=== PATIENT | male | born 1955 | race African-American/Black ===

== ENCOUNTER 2022-03-02 09:35 | Inpatient (IN) | payer OTHER ==
[~2022-03-02] VITALS: Ht 188 cm; Wt 114.4 kg
[~2022-03-02 09:35] MED LIST: ALBU90OI INH; AZIT250 PO; AZIT500 PO; CLAR500 PO; CLIN300; CODGUAEL PO; DILT240; OXYACE5T PO; [UNRECOGNIZED DRUG - REMARK]
[2022-03-02] MEDS ORDERED: Norco 10-325 T1 EACH PO (10:37)
[2022-03-02] MEDS ORDERED: HYDCHL25 PO (10:37)
[2022-03-02] MEDS ORDERED: VALS80 PO (10:38)
[2022-03-02] MEDS ORDERED: ALBU90OI INH (10:47)
[2022-03-02 10:52] LABS: Source, Urine Clean Catch
[2022-03-02 11:00] LABS: BASOPHILS ABSOLUTE AUTO 0.04 K/mm3 (0.00-0.23); BASOPHILS PERCENT AUTO 0 % (0-2); EOSINOPHILS ABSOLUTE AUTO 0.02 K/mm3 (0.00-0.68); EOSINOPHILS PERCENT AUTO 0 % (0-6); Hemoglobin 14.3 g/dL (13.5-17.5); IMMATURE GRAN ABSOLUTE AUTO 0.13 K/mm3 (0.00-0.10); IMMATURE GRAN PERCENT AUTO 1 % (0-1); LYMPHOCYTES ABSOLUTE AUTO 1.06 K/mm3 (0.84-5.20); LYMPHOCYTES PERCENT AUTO 7 % (21-46); MONOCYTES ABSOLUTE AUTO 1.27 K/mm3 (0.16-1.47); MONOCYTES PERCENT AUTO 9 % (4-13); Mean Corpuscular HGB 35.2 pg (26.0-34.0); Mean Corpuscular HGB Conc 36.7 g/dL (31.5-36.5); Mean Corpuscular Volume 96 fL (80-100); Mean Platelet Volume 9.4 fL (9.1-12.4); NEUTROPHILS PERCENT AUTO 83 % (41-73); NRBC ABSOLUTE 0.02 K/mm3 (0.00-0.02); NRBC Auto 0.1 /100 WBC (0.0-0.2); Platelet Count 233 K/mm3 (150-400); RDW Coefficient Variation 16.2 % (11.7-14.2); RDW Standard Deviation 56.8 fL (35.1-46.3); Red Blood Cell Count 4.06 M/mm3 (4.30-5.90); White Blood Cell Count 15.02 K/mm3 (4.00-11.30)
[2022-03-02 11:08] LABS: Appearance, Urine Clear (Clear); Blood, Urine 1+ (Neg); Color, Urine Amber (P-Yellow); Glucose Qualitative, Urine 1+ (Neg); Ketones, Urine 2+ (Neg); Leukocyte Esterase, Urine 1+ (Neg); Nitrite, Urine Neg (Neg); Protein, Urine 2+ (Neg); Specific Gravity, Urine 1.015 (1.003-1.022); Urobilinogen, Urine 2+ (Normal)
[2022-03-02 11:20] LABS: Albumin, Blood 3.5 g/dL (3.4-5.0); Albumin/Globulin Ratio 0.7 (0.8-1.8); Bilirubin, Total 3.7 mg/dL (0.1-1.0); Bun/Creatinine Ratio 18.9 (12.0-20.0); Creatinine, Blood 1.32 mg/dL (0.60-1.20); Potassium, Blood 3.8 mmol/L (3.5-5.5); Total Protein, Blood 8.5 g/dL (6.4-8.2)
[2022-03-02 12:01] LABS: Bilirubin, Urine 1+ (Neg)
[2022-03-02 12:05] LABS: Bacteria Rare /hpf; Red Blood Cells, Urine 0-2 /hpf (0-2); Squamous Epithelial Cells Rare /hpf (Few); White Blood Cells, Urine 0-2 /hpf (0-5)
--- NOTE | 2022-03-02 18:40 | NUR ---
PT ARRIVED TO ROOM AT 1620 BY PAUL FROM ED. ABLE TO TRANSFER SELF TO BED. AMBULATED TO BATHROOM WITH 1 PERSON ASSIST BUT APPEARS TO BE ABLE TO BE INDEPENDENT. SOB WITH ANY ACTIVITY. REPORTS PAIN TO R FLANK WITH ANY MOVEMENT. STATES FOOD DOESN'T TASTE AND HAS TROUBLE EATING DUE TO FLAVOR. ANSWERING QUESTIONS APPROPRIATELY.
--- NOTE | 2022-03-03 04:46 | NUR ---
SUMMARY: PATIENT DID WELL OVER NIGHT. MILD COMPLAINTS OF PAIN WITH MOVEMENT. PATIENT STATED HE DID NOT WANT HIS MIDNIGHT SCHEDULED NORCO. PATIETN ON IV FLUIDS FOR AGNES. NO ACUTE RESPIRATORY COMPAINTS OVERNIGHT. PATIENT AMBULATED TO RESTROOM INDEPENDENTLY. MILD SHORTNESS OF BREATH WHILE AMBULATING.
[2022-03-03 04:57] LABS: Hematocrit 34.2 % (37.0-53.0); Hemoglobin 12.3 g/dL (13.5-17.5); Mean Corpuscular HGB 35.2 pg (26.0-34.0); Mean Corpuscular Volume 98 fL (80-100); Mean Platelet Volume 9.3 fL (9.1-12.4); Platelet Count 187 K/mm3 (150-400); RDW Standard Deviation 57.4 fL (35.1-46.3); Red Blood Cell Count 3.49 M/mm3 (4.30-5.90); White Blood Cell Count 11.38 K/mm3 (4.00-11.30)
[2022-03-03 05:44] LABS: Bun/Creatinine Ratio 19.2 (12.0-20.0); Calcium, Blood 8.6 mg/dL (8.5-10.1); Creatinine, Blood 1.2 mg/dL (0.60-1.20); Potassium, Blood 3.8 mmol/L (3.5-5.5)
--- NOTE | 2022-03-03 19:15 | NUR ---
SHIFT SUMMARY PT INDEPENDENT IN ROOM. REPORTS SOB WITH ANY ACTIVITY WITH A DELAYED RECOVERY OF SOB OF ABOUT 10 MINUTES. COUGHING IS PAINFUL AND TRYING TO AVOID IT. INCENTIVE SPIROMETER GIVEN AND INSTRUCTION GIVEN. PT QUITE TALL AND HAS DIFFICULTY GETTING UP FROM BED IF NOT ELEVATED FOR HIS HEIGHT. REQUESTING TO KEEP BED ELEVATED FOR EASE OF EXITING FOR RESTROOM. APPETITE BETTER THAN YESTERDAY.
--- NOTE | 2022-03-04 04:57 | NUR ---
SHIFT SUMMARY: PT IS ALERT AND ORIENTED. PT IS CALM AND COOPERATIVE WITH CARE. PT CALLS APPROPRIATELY. PT IS INDEPENDENT IN THE ROOM. PT REPORTS R. FLANK PAIN, ESPECIALLY DURING AMBULATION, MEDICATING PER EMAR. PT REPORTS SOB UPON EXERTION, SATS > 90% ON ROOM AIR. PT DENIES NAUSEA AND VOMITING. NO ACUTE CHANGES OR COMPLICATIONS. WILL CONTINUE TO MONITOR.
[2022-03-04 05:55] LABS: BASOPHILS ABSOLUTE AUTO 0.05 K/mm3 (0.00-0.23); BASOPHILS PERCENT AUTO 1 % (0-2); EOSINOPHILS ABSOLUTE AUTO 0.13 K/mm3 (0.00-0.68); EOSINOPHILS PERCENT AUTO 1 % (0-6); Hematocrit 32.1 % (37.0-53.0); Hemoglobin 11.6 g/dL (13.5-17.5); IMMATURE GRAN ABSOLUTE AUTO 0.06 K/mm3 (0.00-0.10); IMMATURE GRAN PERCENT AUTO 1 % (0-1); LYMPHOCYTES ABSOLUTE AUTO 0.95 K/mm3 (0.84-5.20); LYMPHOCYTES PERCENT AUTO 10 % (21-46); MONOCYTES ABSOLUTE AUTO 0.95 K/mm3 (0.16-1.47); MONOCYTES PERCENT AUTO 10 % (4-13); Mean Corpuscular HGB 35.4 pg (26.0-34.0); Mean Corpuscular HGB Conc 36.1 g/dL (31.5-36.5); Mean Corpuscular Volume 98 fL (80-100); Mean Platelet Volume 9.2 fL (9.1-12.4); NEUTROPHILS PERCENT AUTO 78 % (41-73); Platelet Count 227 K/mm3 (150-400); RDW Coefficient Variation 15.9 % (11.7-14.2); RDW Standard Deviation 57.4 fL (35.1-46.3); Red Blood Cell Count 3.28 M/mm3 (4.30-5.90); White Blood Cell Count 9.94 K/mm3 (4.00-11.30)
[2022-03-04 06:14] LABS: Albumin, Blood 2.5 g/dL (3.4-5.0); Anion Gap 9 mmol/L (6-16); Blood Urea Nitrogen 18 mg/dL (8-24); Bun/Creatinine Ratio 17.8 (12.0-20.0); CO2, Blood 24 mmol/L (21-32); Calcium, Blood 8.4 mg/dL (8.5-10.1); Chloride, Blood 101 mmol/L (98-108); Creatinine, Blood 1.01 mg/dL (0.60-1.20); Glomerular Filtration Rate 82 (60-); Glucose, Blood 120 mg/dL (70-99); Phosphorus, Blood 2.4 mg/dL (2.5-4.9); Potassium, Blood 3.9 mmol/L (3.5-5.5); Sodium, Blood 134 mmol/L (136-145)
--- NOTE | 2022-03-04 18:17 | NUR ---
PATIENT IS ALERT AND ORIENTED AND COOPERATIVE WITH CARE. HAD ONE EPISODE OF DIARRHEA TODAY. PATIENT SHOWERED TODAY. C/O CP WITH COUGHING. ORDERED SOME COUGH MEDICINE. PATIENT REFUSED FLEXERIL AT THIS TIME. HIS FRIEND WAS AT THE BEDSIDE FOR A LITTLE WHILE THIS MORNING. WILL CONTINUE TO MONITOR
--- NOTE | 2022-03-05 05:07 | NUR ---
SHIFT SUMMARY: PT CONTINUE TO HAVE R. FLANK PAIN WHICH IS INCREASED DURING AND AFTER AMBULATION, MEDICATING PER EMAR. PT CONTINUES TO BE CALM AND COOPERATIVE WITH CARE. PT SLEPT INTERMITTENTLY THROUGHOUT THE NIGHT. NO ACUTE CHANGES, CONCERNS, OR COMPLICATIONS. WILL CONTINUE TO MONITOR.
[2022-03-05 05:25] LABS: BASOPHILS ABSOLUTE AUTO 0.05 K/mm3 (0.00-0.23); BASOPHILS PERCENT AUTO 1 % (0-2); EOSINOPHILS ABSOLUTE AUTO 0.22 K/mm3 (0.00-0.68); EOSINOPHILS PERCENT AUTO 2 % (0-6); Hematocrit 31.8 % (37.0-53.0); Hemoglobin 11.4 g/dL (13.5-17.5); IMMATURE GRAN ABSOLUTE AUTO 0.04 K/mm3 (0.00-0.10); IMMATURE GRAN PERCENT AUTO 0 % (0-1); LYMPHOCYTES ABSOLUTE AUTO 1.32 K/mm3 (0.84-5.20); LYMPHOCYTES PERCENT AUTO 12 % (21-46); MONOCYTES ABSOLUTE AUTO 1.05 K/mm3 (0.16-1.47); MONOCYTES PERCENT AUTO 10 % (4-13); Mean Corpuscular HGB 35.1 pg (26.0-34.0); Mean Corpuscular HGB Conc 35.8 g/dL (31.5-36.5); Mean Corpuscular Volume 98 fL (80-100); NEUTROPHILS ABSOLUTE AUTO 8.12 K/mm3 (1.96-9.15); NEUTROPHILS PERCENT AUTO 75 % (41-73); Platelet Count 245 K/mm3 (150-400); RDW Coefficient Variation 15.6 % (11.7-14.2); RDW Standard Deviation 55.6 fL (35.1-46.3); Red Blood Cell Count 3.25 M/mm3 (4.30-5.90)
[2022-03-05 05:55] LABS: Albumin, Blood 2.6 g/dL (3.4-5.0); Anion Gap 9 mmol/L (6-16); Blood Urea Nitrogen 17 mg/dL (8-24); CO2, Blood 26 mmol/L (21-32); Calcium, Blood 8.9 mg/dL (8.5-10.1); Chloride, Blood 99 mmol/L (98-108); Glomerular Filtration Rate 83 (60-); Glucose, Blood 129 mg/dL (70-99); Phosphorus, Blood 3.2 mg/dL (2.5-4.9); Potassium, Blood 3.5 mmol/L (3.5-5.5); Sodium, Blood 134 mmol/L (136-145)
--- NOTE | 2022-03-05 08:11 | NUR ---
COUGH UP BLOOD PT WITH FREQ STRONG COUGH THAT PRODUCED LYNNE BLOOD. ORDERED A STAT PE STUDY TO R/O PE. CAST IRON DRAIN PIPE LAYER HERE WITH W/C TO PRESALES CONSULTANT PT TO GO DOWN FOR STUDY.
--- NOTE | 2022-03-05 18:38 | NUR ---
SHIFT SUMMARY PT A&O X 4. VSS. PT CONTINUES TO C/O FLANK PAIN AND PAIN WHEN COUGHING. SPUTUM CX OBTAINED AND SENT TO LAB PER MD ORDER. MEDICATED FOR PAIN AND COUGH PER EMAR. PT WENT FOR A PE STUDY TODAY THAT SHOWED NO PE IS PRESENT. PT IS CALM, PLEASANT & COOPERATIVE WITH ALL CARE.
--- NOTE | 2022-03-06 06:28 | NUR ---
Rn summary: Patient is a delightful man here for RLL PNA. Patient has significant pain to rt side with cough. Medicated q6 hours with [place] 1 tab with good relief. Pt is also receiving cough med with codiene q 4 hours. He is able to move well in bed. He continues to have generalized weakness but able to sit at bedside and get himself back into bed. Pt endorses poor appetite. This am pt had 2 chery sized blood clots he coughed up. Pt is on room air and has course crackles Rt lung base. Call light in reach. Has rested well with pain meds.
[2022-03-06 08:33] LABS: International Normalized Ratio 1.06; Prothrombin Time Results 11.1 Sec (9.7-11.5)
--- NOTE | 2022-03-06 16:16 | NUR ---
PT WENT FOR THORACENTESIS IR WAS ABLE TO PULL A SCANT AMOUNT OF FLUID, 1/2 TO LESS THAN 1 ML OF FLUID. LAB WAS ONLY ABLE TO PERFORM A CULTURE WITH THE FLUID. PT WITH A SMALL BAND AID TO R POSTERIOR CHEST. NO DIFFICULTY BREATHING, PAIN OR BLEEDING NOTED.
--- NOTE | 2022-03-06 18:33 | NUR ---
SHIFT SUMMARY PT A&O X 4. VSS. PT CONTINUES TO BREATH EASILY AFTER THORA TODAY. MEDICATED FOR PAIN AND COUGH PER EMAR. APPETITE SEEMED TO IMPROVE SOMEWHAT TODAY. HE ATE HIS LUNCH AND HIS DINNER. HE IS INDENPENDENT IN THE ROOM FOR RESTROOM USE. PLAN IS LIKELY FOR HOME UPON DC.
--- NOTE | 2022-03-07 05:44 | NUR ---
Rn summary: Patient does not feel like he is improving. Patient continues to have small amounts of bloody sputum. Cough is well controlled with q4 hour cough med. Pain is helped with q6 hour [place]. Pt has swelling maylin ankles which he states is more than he usually has at home. Pt has concerns about the thoracentisis and the xray after and what it all means. Explaination given. Pt has rested pretty well. Rt lower lobe breath sounds are diminished but less rhonchi heard compared to Sat night. Call light in reach. Pt able to use urinal and moves in and out of bed independantly.
--- NOTE | 2022-03-07 20:26 | NUR ---
SHIFT SUMMARY PLEASANT 66-YEAR-OLD MALE, A&O X4. POWER GLIDE TO R UPPER ARM, DRESSING CHANGED THIS SHIFT. INDEPENDENT IN ROOM. REGULAR DIET. PTN WITH COUGH WITH HELP FROM MEDICATION PER EMAR. NAUSEA REPORTED YESTERDAY, BUT NONE THIS SHIFT. CONTINUE TO MONITOR.
--- NOTE | 2022-03-08 05:54 | NUR ---
Rn summary: Patient is alert and oriented. Pt continues to have cough with hemoptysis but amount is getting smaller and mixed with some normal mucus. Pt continues to have pain with coughing. He is medicated q6 hours with norco 5/325mg which helps the discomfort. Patient feels stronger, able to get in and out of bed, cover self which he struggled with 2 days ago. He is hopeful to get to go home soon. Call light in reach, appetite slowly improving.
[2022-03-08 06:03] LABS: Hematocrit 30.8 % (37.0-53.0); Hemoglobin 10.8 g/dL (13.5-17.5); Mean Corpuscular HGB 34.5 pg (26.0-34.0); Mean Corpuscular HGB Conc 35.1 g/dL (31.5-36.5); Mean Corpuscular Volume 98 fL (80-100); Mean Platelet Volume 9.2 fL (9.1-12.4); Platelet Count 359 K/mm3 (150-400); RDW Coefficient Variation 15.5 % (11.7-14.2); RDW Standard Deviation 55.9 fL (35.1-46.3); Red Blood Cell Count 3.13 M/mm3 (4.30-5.90); White Blood Cell Count 7.89 K/mm3 (4.00-11.30)
[2022-03-08 06:22] LABS: Bun/Creatinine Ratio 14.3 (12.0-20.0); Calcium, Blood 8.9 mg/dL (8.5-10.1); Creatinine, Blood 0.98 mg/dL (0.60-1.20); Potassium, Blood 3.5 mmol/L (3.5-5.5)
--- NOTE | 2022-03-08 18:19 | NUR ---
SHIFT SUMMARY PT WAS GOING TO BE SENT HOME TODAY, BUT IS NOW AWAITING TRANSFER TO DEAL WITH PLEURAL EFFUSION THAT WILL NOT RESLOLVE. PT IS VERY IRRITATED AND DISHEARTENED BY THIS NEWS. HE HAS BEEN IRRITABLE WITH CARE MOST OF THE DAY AND HAS ASKED THAT HE "BE LEFT ALONE FOR A BIT WITHOUT AN OV THAT IV STUFF SO I CAN GET MYSEFL TOGETHER." PT IS INDEPENDENT UP TO THE BATHROOM. HE HAS BEEN SITTING UP AT THE SIDE OF THE BED MOST OF THE DAY. STILL HAVING HEMOPTYSIS AND NEEDING TO HAVE A BOWEL MOVEMENT. PT PREVIOUSLY HAD DENIED NEED FOR MEDICATIONS, THEN, WANTED TO TRY PRUNE JUICE, AND IS NOW GOING TO TRY TO USE THE BATHROOM ONCE AGAIN. WILL PASS ON TO LINE REPAIRER. BED IN LOWEST POSITION AND CALL LIGHT IN REACH
--- NOTE | 2022-03-09 05:13 | NUR ---
SHIFT SUMMARY: PT IS ALERT AND ORIENTED. PT IS CALM, FRIENDLY, AND COOPERATIVE WITH CARE. PT CALLS APPROPRIATELY. PT IS INDEPENDENT IN THE ROOM. PT REPORTS INTERMITTENT PAIN, MEDICATING PER EMAR. PT REPORTS SOB UPON EXERTION, SATS > 90% ON ROOM AIR. PT DENIES NAUSEA AND VOMITING. POSSIBLE TRANSFER TO ANOTHER HOSPITAL DUE TO UNRESOLVING PLEURAL EFFUSION. NO ACUTE CHANGES OR COMPLICATIONS THIS SHIFT. WILL REPORT TO DAY NURSE.
[2022-03-09 13:40] LABS: Vancomycin, Trough 22.4 ug/mL (5.0-10.0)
--- NOTE | 2022-03-09 18:08 | NUR ---
SHIFT SUMMARY- PT A/O, PLESANT AND COOPERATIVE. HE IS EATING AND DRINKING WELL. HE IS PENDING TRANSPORT. HIS PG STARTED LEAKING THIS SHIFT AND WAS REMOVED, AWATING TRANSFER. HIS BED IS IN THE LOW POSITION AND CALL LIGHT IS WITHIN REACH.
[2022-03-10] MEDS ORDERED: ACET500 PO (04:02)
[2022-03-10] MEDS ORDERED: BISA5EC PO (04:04)
[2022-03-10] MEDS ORDERED: CALCIUM CARBONATE (04:12)
[2022-03-10] MEDS ORDERED: VITAMIN D31000 UNI1 PO (04:14)
[2022-03-10] MEDS ORDERED: DIGOX125 MC1 PO (04:17)
[2022-03-10] MEDS ORDERED: Colace100 MG PO (04:18)
[2022-03-10] MEDS ORDERED: FLUOXETINE HCL20 M1 PO (04:21)
[2022-03-10] MEDS ORDERED: LIDO700A20 TOP (04:24)
[2022-03-10] MEDS ORDERED: LIOT5 PO (04:27)
--- NOTE | 2022-03-10 05:39 | NUR ---
PATIENT ALERT AND ORIENTED AND COOPERATIVE WITH CARE. "ANXIOUS TO GET TO THE HOSPITAL WHO IS GOING TO TAKE CARE OF THIS LUNG INFECTION". IV ANTIBIOTICS RETIMED NEW ACCESS WASN'T OBTAINED UNTIL 2029. CURRENTLY ALL ANTIBIOTICS ARE UP TO DATE. PAIN MANAGED WELL WITH SCHEDULED HYDROCODONE. LUNG SOUNDS DIMINISHED BILATERALLY RIGHT > THAN LEFT WITH SCATTERED FINE CRACKLES IN BILAT.BASES
--- NOTE | 2022-03-10 18:35 | NUR ---
SHIFT SUMMARY PT INDEPENDENT IN ROOM BUT REPORTS SOB WITH ACTIVITY AND INCREASED PAIN TO R SIDE WITH MOVEMENT. DOZING AT TIMES. PLANS FOR COBRA TRANSFER TO [facility] THIS EVENING. MEDICATED FOR PAIN SCHEDULED.
--- NOTE | 2022-03-10 20:10 | NUR ---
AWAITING RETURN CALL FROM TIFFANI ASHTON AT [facility]. PATIENT IS READY FOR TRANSPORT. AWAITING RIDE. REFUSED 1999 VANCOMYCIN. LAST NORCO 5/325MG GIVEN AT 1745. HE STATES PAIN TOLERABLE AT 4/10 IN R. LATERAL CHEST. PATIENT ON ROOM AIR WITH SCATTERED RHONCHI RIGHT > LEFT. DIM IN BASES. LAST BM TODAY (03/10). NO CHANGES FROM DAYSHIFT ASSESSMENT
== END 2022-03-10 20:40 | disposition short-term general hospital (02) | DRG 871 ==
LOC: ER 09:35 → MEDS 13:47
PROVIDERS: Internal Medicine; Nurse Practitioner Acute Care; Student in an Organized Health Care Education/Training Program; ADMIT Internal Medicine
PROC: 3E03329 Introduction of Other Anti-infective into Peripheral Vein, Percutaneous Approach (ICD-10-PCS; 2022-03-02)
PROC: 0W9930Z Drainage of Right Pleural Cavity with Drainage Device, Percutaneous Approach (ICD-10-PCS; principal; 2022-03-06)
DX: A41.4 Sepsis due to anaerobes (principal); J18.9 Pneumonia, unspecified organism; N17.9 Acute kidney failure, unspecified; E87.1 Hypo-osmolality and hyponatremia; J44.0 Chronic obstructive pulmonary disease with (acute) lower respiratory infection; F11.20 Opioid dependence, uncomplicated; R65.20 Severe sepsis without septic shock; J44.9 Chronic obstructive pulmonary disease, unspecified; R31.9 Hematuria, unspecified; I10 Essential (primary) hypertension; K76.0 Fatty (change of) liver, not elsewhere classified; F17.210 Nicotine dependence, cigarettes, uncomplicated; G89.29 Other chronic pain; R73.03 Prediabetes; M41.9 Scoliosis, unspecified; M54.2 Cervicalgia; M54.50 Low back pain, unspecified; Z88.8 Allergy status to other drugs, medicaments and biological substances; Z88.0 Allergy status to penicillin; Z79.51 Long term (current) use of inhaled steroids; Z79.899 Other long term (current) drug therapy
CPT/HCPCS: 32555; 36415; 71045; 71046; 71260; 74176; 80048; 80053; 80069; 80202; 81001; 82248; 83605; 83690; 83735; 83880; 84145; 84484; 85025; 85027; 85379; 85610; 87040; 87070; 87075; 87076; 87086; 87205; 88108; 88305; 93005; 93010; 93306; 94760; 96365; 96375; 99285-25; A9270; J0456; J0696; J1644; J1885; J2405; J3370; J7030; J7040; J7050; J7060; J7120; Q9967

== ENCOUNTER 2023-04-03 15:35 | Emergency (ER) | payer OTHER ==
[~2023-04-03] VITALS: Ht 193 cm; Wt 106.6 kg
[~2023-04-03 15:35] MED LIST changes: +ACET500 PO; +ALLO300 PO; +Acetaminophen650 M1 PO; +BISA5EC PO; +CALCIUM CARBONATE; +CARV6.25 PO; +Colace100 MG PO; +DIGOX125 MC1 PO; +FERSU300 PO; +FLUOXETINE HCL20 M1 PO; +FOLI1 PO; +FURO20 PO; +HYDCHL25 PO; +INDO50 PO; +LIDO700A20 TOP; +LIOT5 PO; +Norco 10-325 T1 EACH PO; +POTA10T PO; +VALS80 PO; +VITAMIN D31000 UNI1 PO
[2023-04-03 16:57] LABS: BASOPHILS ABSOLUTE AUTO 0.03 K/mm3 (0.00-0.23); BASOPHILS PERCENT AUTO 1 % (0-2); EOSINOPHILS ABSOLUTE AUTO 0.04 K/mm3 (0.00-0.68); EOSINOPHILS PERCENT AUTO 1 % (0-6); Hematocrit 22.9 % (37.0-53.0); Hemoglobin 8.2 g/dL (13.5-17.5); IMMATURE GRAN ABSOLUTE AUTO 0.03 K/mm3 (0.00-0.10); IMMATURE GRAN PERCENT AUTO 1 % (0-1); LYMPHOCYTES ABSOLUTE AUTO 0.81 K/mm3 (0.84-5.20); LYMPHOCYTES PERCENT AUTO 12 % (21-46); MONOCYTES ABSOLUTE AUTO 0.53 K/mm3 (0.16-1.47); MONOCYTES PERCENT AUTO 8 % (4-13); Mean Corpuscular HGB 34.2 pg (26.0-34.0); Mean Corpuscular HGB Conc 35.8 g/dL (31.5-36.5); Mean Corpuscular Volume 95 fL (80-100); NEUTROPHILS ABSOLUTE AUTO 5.13 K/mm3 (1.96-9.15); NEUTROPHILS PERCENT AUTO 78 % (41-73); Platelet Count 237 K/mm3 (150-400); RDW Coefficient Variation 16.2 % (11.7-14.2); RDW Standard Deviation 55.7 fL (35.1-46.3); White Blood Cell Count 6.57 K/mm3 (4.00-11.30)
[2023-04-03 18:06] LABS: Albumin, Blood 3.4 g/dL (3.4-5.0); Albumin/Globulin Ratio 0.8 (0.8-1.8); Bilirubin, Total 2.3 mg/dL (0.1-1.0); Bun/Creatinine Ratio 17.6 (12.0-20.0); Calcium, Blood 9.5 mg/dL (8.5-10.1); Creatinine, Blood 0.91 mg/dL (0.60-1.20); Globulin, Blood 4.3 g/dL (2.2-4.0); Potassium, Blood 4.8 mmol/L (3.5-5.5); Total Protein, Blood 7.7 g/dL (6.4-8.2)
[2023-04-03] MEDS ORDERED: OMEP20ER PO (18:23)
[2023-04-03 19:00] VITALS: BP 128/73
== END 2023-04-03 19:20 | disposition home or self-care (01) ==
LOC: ER 15:35
PROVIDERS: Emergency Medicine
DX: D61.818 Other pancytopenia (principal); I10 Essential (primary) hypertension; J44.9 Chronic obstructive pulmonary disease, unspecified; F17.210 Nicotine dependence, cigarettes, uncomplicated; R73.03 Prediabetes; Z88.0 Allergy status to penicillin; Z88.8 Allergy status to other drugs, medicaments and biological substances; Z88.6 Allergy status to analgesic agent; Z79.899 Other long term (current) drug therapy
CPT/HCPCS: 80053; 85025; 86850; 86900; 86901; 99284-25

== ENCOUNTER 2023-04-13 10:43 | Inpatient (IN) | payer OTHER ==
[~2023-04-13] VITALS: Ht 193 cm; Wt 105.4 kg
[~2023-04-13 10:43] MED LIST changes: +OMEP20ER PO
[2023-04-13 13:15] LABS: BASOPHILS ABSOLUTE AUTO 0.02 K/mm3 (0.00-0.23); BASOPHILS PERCENT AUTO 0 % (0-2); EOSINOPHILS ABSOLUTE AUTO 0.02 K/mm3 (0.00-0.68); EOSINOPHILS PERCENT AUTO 0 % (0-6); Hemoglobin 6.8 g/dL (13.5-17.5); IMMATURE GRAN ABSOLUTE AUTO 0.05 K/mm3 (0.00-0.10); IMMATURE GRAN PERCENT AUTO 1 % (0-1); LYMPHOCYTES ABSOLUTE AUTO 0.69 K/mm3 (0.84-5.20); LYMPHOCYTES PERCENT AUTO 11 % (21-46); MONOCYTES ABSOLUTE AUTO 0.61 K/mm3 (0.16-1.47); MONOCYTES PERCENT AUTO 10 % (4-13); Mean Corpuscular HGB 34.3 pg (26.0-34.0); Mean Corpuscular HGB Conc 35.8 g/dL (31.5-36.5); Mean Corpuscular Volume 96 fL (80-100); Mean Platelet Volume 9.1 fL (9.1-12.4); NEUTROPHILS ABSOLUTE AUTO 4.65 K/mm3 (1.96-9.15); NEUTROPHILS PERCENT AUTO 77 % (41-73); Platelet Count 217 K/mm3 (150-400); RDW Coefficient Variation 16.5 % (11.7-14.2); RDW Standard Deviation 56.5 fL (35.1-46.3); Red Blood Cell Count 1.98 M/mm3 (4.30-5.90); White Blood Cell Count 6.04 K/mm3 (4.00-11.30)
[2023-04-13 13:33] LABS: Albumin, Blood 3.2 g/dL (3.4-5.0); Albumin/Globulin Ratio 0.8 (0.8-1.8); Bilirubin, Direct 1.5 mg/dL (0.0-0.3); Bilirubin, Indirect 0.9 mg/dL (0.1-0.7); Bilirubin, Total 2.4 mg/dL (0.1-1.0); Bun/Creatinine Ratio 15.8 (12.0-20.0); Creatinine, Blood 1.01 mg/dL (0.60-1.20); Globulin, Blood 4.1 g/dL (2.2-4.0); Potassium, Blood 4.5 mmol/L (3.5-5.5); Total Protein, Blood 7.3 g/dL (6.4-8.2)
[2023-04-13 14:39] LABS: Percent Saturation 95.4 % (20.0-50.0)
[2023-04-13 14:57] LABS: International Normalized Ratio 1.09; Prothrombin Time Results 11.4 Sec (9.7-11.5)
[2023-04-13 19:19] LABS: Hematocrit 18.8 % (37.0-53.0); Hemoglobin 6.7 g/dL (13.5-17.5)
[2023-04-13 21:22] VITALS: BP 145/85
--- NOTE | 2023-04-13 22:09 | NUR ---
PT HGB 6.7 ON RECHECK AFTER RECEIVING 1 UNIT PRBC. HOSPITALIST NOTIFIED AND ORDER FOR 1 UNIT PRBC AND REPEAT H/H GIVEN.
[2023-04-13 23:13] VITALS: BP 142/82
[2023-04-13 23:33] VITALS: BP 137/79
[2023-04-14 00:45] VITALS: BP 148/88
[2023-04-14 01:46] VITALS: BP 146/91
[2023-04-14 04:06] VITALS: BP 151/98
[2023-04-14 04:55] LABS: Albumin/Globulin Ratio 0.8 (0.8-1.8); Bilirubin, Total 1.7 mg/dL (0.1-1.0); Bun/Creatinine Ratio 15.8 (12.0-20.0); Calcium, Blood 8.4 mg/dL (8.5-10.1); Creatinine, Blood 1.01 mg/dL (0.60-1.20); Globulin, Blood 3.8 g/dL (2.2-4.0); Potassium, Blood 5.1 mmol/L (3.5-5.5); Total Protein, Blood 6.8 g/dL (6.4-8.2)
[2023-04-14 05:10] LABS: Hematocrit 21.3 % (37.0-53.0); Hemoglobin 7.7 g/dL (13.5-17.5); Mean Corpuscular HGB 32.6 pg (26.0-34.0); Mean Corpuscular HGB Conc 36.2 g/dL (31.5-36.5); RDW Coefficient Variation 17.9 % (11.7-14.2); RDW Standard Deviation 58.7 fL (35.1-46.3); Red Blood Cell Count 2.36 M/mm3 (4.30-5.90); White Blood Cell Count 5.45 K/mm3 (4.00-11.30)
[2023-04-14 05:21] LABS: Mean Corpuscular Volume 90 fL (80-100)
--- NOTE | 2023-04-14 05:21 | NUR ---
SHIFT SUMMARY NOC ADMIT FROM ED WITH ANEMIA AND HGB OF 6.7 AFTER RECEIVING 1 UNIT PRBC IN ED. AFTER ADMIT TO FLOOR HOSPITALIST ORDERED AN ADDITIONAL 1 UNIT PRBC, AWAITING AM LABS FOR IMPROVEMENT. PT IS RECEIVING NS @ 100 ML/HR. ON TELE RUNNING SINUS RHYHTM @ 92 BPM. PT REPORTS NOT BEEN ABLE TO EAT NORMALLY FOR PAST 16 DAYS. PT ATTEMPTED TO EAT A TURKEY SANDWICH BUT WAS UNABLE TO STOMACH IT. PT ALSO HAD C/O OF NOT HAVING A BM FOR A FEW DAYS, BUT HAD ONE XL LIQUID STOOL SOON AFTER. PT REPORTED HAVING 2 SYNCOPAL EPISODES YESTERDAY BEFORE COMING TO ED. PT HAS LIBRIUM IN EMAR, BUT HAS NOT EXHIBITED ANY WITHDRAWAL SYMPTOMS SO FAR. PT IS A/O X 4. PLEASANT AND COOPERATIVE WITH CARE. PG IN STEFANO. PT CURRENTLY RESTING WITH BED IN LOWEST POSITION, AND CALL LIGHT WITHIN REACH.
[2023-04-14 05:33] LABS: BASOPHILS PERCENT MAN 0 % (0-2); EOSINOPHILS PERCENT MAN 0 % (0-6); LYMPHOCYTES ABSOLUTE MAN 0.76 K/mm3 (0.84-5.20); LYMPHOCYTES PERCENT MAN 14 % (21-46); MONOCYTES ABSOLUTE MAN 0.21 K/mm3 (0.16-1.47); MONOCYTES PERCENT MAN 4 % (4-13); NEUTROPHILS ABSOLUTE MAN 4.46 K/mm3 (1.96-9.15); SEG NEUTROPHILS PERCENT MAN 82 % (41-73); TOTAL CELLS COUNTED 100
[2023-04-14 05:37] LABS: Platelet Count 206 K/mm3 (150-400)
[2023-04-14 07:40] VITALS: BP 144/86
[2023-04-14 15:00] VITALS: BP 151/104
--- NOTE | 2023-04-14 18:33 | NUR ---
SHIFT SUMMARY- PT ALERT AND ORIENTED, 1PA TO THE BSC. PT IN BED, UNABLE TO AMBULATE TOAY WITH THERAPY D/T DIZZINESS WTH STANDING. CURRENT THERAPY RECOMENDATION IS SNF, PT REFUSES TO GO TO A SNF AND WANTS TO BE DISCHARGED HOME WITH HIS FRIENDS CAREGIVERS. PT IS AMBULATORY AT BASELINE HOWEVER HE CAN NOT CURRENTLY STAND WITH STAFF ASSIST AND TAKE A STEP SAFELY. PT IS SITTING AT THE EOB, (HE CAN NOT GET TO THE EOB WITHOUT ASSISTANCE) EATING HIS DINER. PG IN THE STEFANO IS RUNNING NS AT 100ML/HR. NO CURRENT S&S OF DISTRESS NOTED. WILL PASS ON IN BEDSIDE REPORT TO NIGHT RN.
[2023-04-14 19:44] VITALS: BP 145/92
[2023-04-15] VITALS (10 sets, daily range): BP systolic 127–153; BP diastolic 84–98
--- NOTE | 2023-04-15 04:21 | NUR ---
SHIFT SUMMARY PATIENT HAD NO ACUTE CHANGES. AXOX 4 AND SBA TO BSC. DENIES DIZZINESS. REPORTED BACK/ABDOMEN PAIN AND NORCO GIVE PER EMAR X ONE. DENIES CHEST PAIN, SOB, AND N/V. POWERGLIDE RU ARM INTACT. NS INFUSING @ 100 mL/HR. TELE MONITOR NSR 85. VSS/AFEBRILE. CALL LIGHT IN REACH. BED IN LOWEST POSITION. WILL CONTINUE TO MONITOR UNTIL DAY SHIFT NURSE ASSUMES CARE.
[2023-04-15 05:52] LABS: Hematocrit 21.6 % (37.0-53.0); Hemoglobin 7.7 g/dL (13.5-17.5); Mean Corpuscular HGB 32.6 pg (26.0-34.0); Mean Corpuscular HGB Conc 35.6 g/dL (31.5-36.5); Mean Corpuscular Volume 92 fL (80-100); Mean Platelet Volume 9.2 fL (9.1-12.4); Platelet Count 238 K/mm3 (150-400); RDW Coefficient Variation 18.4 % (11.7-14.2); RDW Standard Deviation 60.7 fL (35.1-46.3); Red Blood Cell Count 2.36 M/mm3 (4.30-5.90); White Blood Cell Count 9.39 K/mm3 (4.00-11.30)
[2023-04-15 10:32] LABS: Stool Occult Bld Immuno 1 Negative (NEGATIVE)
[2023-04-15 15:51] LABS: Hematocrit 19.5 % (37.0-53.0); Hemoglobin 7.1 g/dL (13.5-17.5)
--- NOTE | 2023-04-15 19:44 | NUR ---
SHIFT SUMMARY- PT ALERT AND ORIENTED. HE HAD A LITTLE PERIOD THAT HE WANTED TO LEAVE THE HOSPITAL AMA, THIS WAS RELATED TO A MISUDERSTANDING ABOUT HIS ABILITY TO SAFELY MOBILIZE. PT HAS BEEN ABLE TO SAFELY MOBILIZE TO THE BSC WITH A SBA FROM ONE STAFF MEMBER T/O THE DAY TODAY. ORTHO VITALS WERE COMPLETED THIS EVENING REVEALING HR INCREASE WITH POSITIONAL CHANGES. HGB RECHECK THIS EVENING REVEALED HGB 7.1 HCT 18.7. RECIEVED ORDERS TO TRANSFUSE, 2 UNITS UNIT READY SLIP ARRIVED AT 1845. SPOKE TO DR ARANDA SHE WANTS BOTH UNITS TRANSFUSED WITH A DOSE OF IV LASIX AFTER THE FIRST UNIT. PASSED ALL ON IN BEDSIDE REPORT TO NIGHT TIFFANI URRUTIA. PT SITTING UP IN BED, PARTICIPATED IN BEDSIDE REPORT, ALERT AND ORIENTED WITH NO S&S OF DISTRESS.
[2023-04-16] VITALS (7 sets, daily range): BP systolic 118–151; BP diastolic 87–102
--- NOTE | 2023-04-16 01:11 | NUR ---
SECOND UNIT OF PRBC INFUSING. PATIENT TOLERATING FIRST UNIT WELL. WCTM
--- NOTE | 2023-04-16 04:11 | NUR ---
SHIFT SUMMARY PATIENT HAD NO ACUTE CHANGES. AXOX 4 AND SBA TO BSC. RECEIVED TWO UNITS PRBC WITH IV LASIX AFTER FIRST UNIT PER ORDERS. TOLERATED WELL. DENIES CHEST PAIN AND SOB. NAUSEOUS X ONE AND IV ZOFRAN GIVEN WITH GOOD EFFECT. ON ROOM AIR. POWERGLIDE RU ARM. RESTED IN BED T/O SHIFT WATCHING TV. COOPERATIVE WITH CARE. CALL LIGHT IN REACH. BED IN LOWEST POSITION. WILL CONTINUE TO MONITOR UNTIL DAY SHIFT NURSE ASSUMES CARE.
--- NOTE | 2023-04-16 07:54 | NUR ---
ASSUMED CARE OF PT- BEDSIDE REPORT COMPLETED WITH NIGHT RN. PT SLEEPING AT THE START OF REPORT. PER REPORT HE HAS NOT BEEN ASLEEP ON CARE ROUNDS T/O THE NIGHT. PT WOKE BEFORE THE END OF REPORT. LUNG SOUNDS ARE WHEEZY, ASKED IF THE PT IS FEELING LIKE IT IS MORE DIFFICULT TO BREATHE, HE SAYS NO. "I WILL USE MY INHALER IN A BIT." STAFF QUESTIONED THE PT, HE APPARENTLY HAS AN ALBUTEROL INHALER IN HIS BAG THAT HE HAS BEEN USING. WILL UPDATE ON MORNING ROUNDS. PT RECIEVED 2 UNITS OF PRBC'S LAST NIGHT WITH LASIX BETWEEN UNITS. PT IN BED WITH NO S&S OF DISTRESS NOTED.
[2023-04-16 08:59] LABS: Albumin, Blood 2.8 g/dL (3.4-5.0); Anion Gap 8 mmol/L (6-16); Blood Urea Nitrogen 12 mg/dL (8-24); Bun/Creatinine Ratio 12.4 (12.0-20.0); CO2, Blood 24 mmol/L (21-32); Calcium, Blood 8.4 mg/dL (8.5-10.1); Chloride, Blood 105 mmol/L (98-108); Creatinine, Blood 0.97 mg/dL (0.60-1.20); Glomerular Filtration Rate 86 (60-); Glucose, Blood 115 mg/dL (70-99); Phosphorus, Blood 2.3 mg/dL (2.5-4.9); Potassium, Blood 3.7 mmol/L (3.5-5.5); Sodium, Blood 137 mmol/L (136-145)
[2023-04-16 09:42] LABS: Hematocrit 28.7 % (37.0-53.0); Hemoglobin 10.3 g/dL (13.5-17.5); Mean Corpuscular HGB 31.9 pg (26.0-34.0); Mean Corpuscular HGB Conc 35.9 g/dL (31.5-36.5); Mean Corpuscular Volume 89 fL (80-100); Mean Platelet Volume 8.6 fL (9.1-12.4); NRBC ABSOLUTE 0.02 K/mm3 (0.00-0.02); NRBC Auto 0.2 /100 WBC (0.0-0.2); Platelet Count 238 K/mm3 (150-400); RDW Coefficient Variation 17.1 % (11.7-14.2); RDW Standard Deviation 55.2 fL (35.1-46.3); Red Blood Cell Count 3.23 M/mm3 (4.30-5.90); White Blood Cell Count 10.47 K/mm3 (4.00-11.30)
[2023-04-16 15:36] LABS: Influenza A, PCR NEGATIVE (NEGATIVE); Influenza B, PCR NEGATIVE (NEGATIVE); Resp Syncytial Virus, PCR NEGATIVE (NEGATIVE); SARS-Cov-2 (COVID-19) PCR, MMC NEGATIVE (NEGATIVE)
--- NOTE | 2023-04-16 19:37 | NUR ---
SHIFT SUMMARY- PT ALERT AND ORIENTED, HE HAS BEEN TRANSFERING TO THE BSC INDEPENDENTLY. GAS-X ORDERED SCHEDULED. PT ASKED SEVERAL QUESTIONS ABOUT REHAB THIS EVENING, HE SEEMS TO BE MORE OPEN TO THE IDEA OF GOING TO A REHAB ON DISCHARGE. PT IN BED, CALL LIGHT IN REACH NO S&S OF DISTRESS NOTED AT THE TIME OF BEDSIDE REPORT. PG TO STEFANO DOES NOT DRAW, BUT FLUSHES WELL.
[2023-04-17 03:22] VITALS: BP 149/98
--- NOTE | 2023-04-17 04:13 | NUR ---
SHIFT SUMMARY PATIENT HAD NO ACUTE CHANGES. AXOX 4 AND SBA TO BSC. DENIES CHEST PAIN, SOB, AND N/V. REPORTED BACK PAIN X ONE AND NORCO GIVEN PER EMAR WITH GOOD EFECT. VSS/AFEBRILE. POWERGLIDE RU ARM INTACT. TELE MONITOR SR @78. RESTING WATCHING TV FIRST PART OF SHIFT. SLEEPS ON/OFF. CALL LIGHT IN REACH. BED IN LOWEST POSITION. WILL CONTINUE TO MONITOR UNTIL DAY SHIFT NURSE ASSUMES CARE.
[2023-04-17 08:08] VITALS: BP 148/93
[2023-04-17 09:13] LABS: BASOPHILS ABSOLUTE AUTO 0.04 K/mm3 (0.00-0.23); BASOPHILS PERCENT AUTO 0 % (0-2); EOSINOPHILS ABSOLUTE AUTO 0.09 K/mm3 (0.00-0.68); EOSINOPHILS PERCENT AUTO 1 % (0-6); Hematocrit 25.9 % (37.0-53.0); Hemoglobin 9.4 g/dL (13.5-17.5); IMMATURE GRAN ABSOLUTE AUTO 0.38 K/mm3 (0.00-0.10); IMMATURE GRAN PERCENT AUTO 4 % (0-1); LYMPHOCYTES PERCENT AUTO 18 % (21-46); MONOCYTES ABSOLUTE AUTO 1.15 K/mm3 (0.16-1.47); MONOCYTES PERCENT AUTO 12 % (4-13); Mean Corpuscular HGB 32.1 pg (26.0-34.0); Mean Corpuscular HGB Conc 36.3 g/dL (31.5-36.5); Mean Corpuscular Volume 88 fL (80-100); Mean Platelet Volume 8.7 fL (9.1-12.4); NEUTROPHILS ABSOLUTE AUTO 6.54 K/mm3 (1.96-9.15); NEUTROPHILS PERCENT AUTO 65 % (41-73); NRBC ABSOLUTE 0.05 K/mm3 (0.00-0.02); NRBC Auto 0.5 /100 WBC (0.0-0.2); Platelet Count 243 K/mm3 (150-400); RDW Coefficient Variation 16.8 % (11.7-14.2); RDW Standard Deviation 54.5 fL (35.1-46.3); Red Blood Cell Count 2.93 M/mm3 (4.30-5.90)
[2023-04-17 09:31] LABS: Albumin, Blood 3.1 g/dL (3.4-5.0); Anion Gap 8 mmol/L (6-16); Blood Urea Nitrogen 11 mg/dL (8-24); Bun/Creatinine Ratio 11.1 (12.0-20.0); CO2, Blood 25 mmol/L (21-32); Calcium, Blood 8.5 mg/dL (8.5-10.1); Chloride, Blood 105 mmol/L (98-108); Creatinine, Blood 0.99 mg/dL (0.60-1.20); Glomerular Filtration Rate 83 (60-); Glucose, Blood 139 mg/dL (70-99); Magnesium, Blood 1.7 mg/dL (1.6-2.4); Phosphorus, Blood 2.4 mg/dL (2.5-4.9); Potassium, Blood 3.7 mmol/L (3.5-5.5); Sodium, Blood 138 mmol/L (136-145)
[2023-04-17 15:43] VITALS: BP 149/80
--- NOTE | 2023-04-17 17:24 | NUR ---
SHIFT SUMMARY- PT IS A/O, PLESANT AND COOPERTATIVE. HE IS EATING AND DRINKING WELL. HAD A BM THIS SHIFT. WORKED WITH PT AND OT AND TOLORATED WELL. PROBABLE DISCHARGE TOMORROW. HIS BED IS IN THE LOW POSITON AND CALL LIGHT IS WITIN REACH.
[2023-04-17 21:04] VITALS: BP 126/89
[2023-04-18 03:18] VITALS: BP 151/90
--- NOTE | 2023-04-18 04:53 | NUR ---
END OF SHIFT SUMMARY PT A&O x4, VSS, AFEBRILE. PT CALM AND COOPERATIVE WITH CARE PROVIDED. PT C/O ABDOMINAL PAIN. PAIN MANAGED WITH PRN NORCO. PT SLEPT ON AND OFF THROUGHOUT THE NIGHT. PT STATED HE TAKES HYDROCODONE 10MG/ ACETAMINOPHEN 325MG. NEW ORDER WAS PLACED, AND EFFECTIVE. PT EDUCATION PROVIDED REGARDING SIDE EFFECTS OF PAIN MEDICATION. PAIN IS LOCATED TO ABDOMIN. PT IS TO DISCHARGE HOME TODAY. POWERGLIDE TO R UPPER ARM, SALINE LOCKED, FLUSHES WELL. PT ABLE TO MAKE NEEDS KNOWN, CALL LIGHT WITHIN REACH, WCTM.
--- NOTE | 2023-04-18 07:18 | NUR ---
ASSUMED CARE: PT RESTING IN BED WITH EYES CLOSED, RESPIRATIONS EVEN AND UNLABORED. NSR ON TELE AT THIS TIME, HR 79. NO ACUTE NEEDS OR CONCERNS AT THIS TIME.
[2023-04-18 07:49] VITALS: BP 138/87
--- NOTE | 2023-04-18 09:30 | NUR ---
TELE CALLED AND STATED THAT PT HAD A 6 SECOND RUN OF SVT IN THE 180S. PT DENIED ANY NEW SYMPTOMS DURING THIS TIME. DR BRADY NOTIFIED.
--- NOTE | 2023-04-18 10:17 | NUR ---
PATIENT'S LIPASE RESULT WAS ELEVATED. DR CHECKED IT DUE TO PT C/O ABDOMINAL DISCOMFORT WITH BREAKFAST. CONTACTED DR ABOUT LAB RESULT AND DR INSTRUCTED FOR CLEAR LIQUID DIET AT LUNCH AND PLANS TO ORDER PANCREATIC ENZYMES. IMAGING WAS DONE ON ABDOMEN ON 04/14/23
[2023-04-18 11:19] LABS: Albumin, Blood 1.5 g/dL (3.4-5.0); Anion Gap 10 mmol/L (6-16); Blood Urea Nitrogen 11 mg/dL (8-24); Bun/Creatinine Ratio 10.9 (12.0-20.0); CO2, Blood 24 mmol/L (21-32); Calcium, Blood 8.4 mg/dL (8.5-10.1); Chloride, Blood 103 mmol/L (98-108); Creatinine, Blood 1.01 mg/dL (0.60-1.20); Glomerular Filtration Rate 82 (60-); Glucose, Blood 141 mg/dL (70-99); Magnesium, Blood 1.4 mg/dL (1.6-2.4); Phosphorus, Blood 2.9 mg/dL (2.5-4.9); Potassium, Blood 3.6 mmol/L (3.5-5.5); Sodium, Blood 137 mmol/L (136-145)
[2023-04-18 16:20] VITALS: BP 143/105
[2023-04-18 16:45] VITALS: BP 146/94
--- NOTE | 2023-04-18 17:14 | NUR ---
SHIFT SUMMARY: PT DID NOT GET DISCHARGED DUE TO ABDOMINAL PAIN THIS AM. DIET CHANGED TO CLEAR LIQUID WHICH PT TOLERATED WELL. ADVANCED TO FULL LIQUID AT DINNER AND PANCREATIC ENZYMES WILL BE GIVEN AT THAT TIME PER EMAR. PT DECLINED SIMETHICONE REMAINDER OF SHIFT. POTENTIAL DISCHARGE TOMORROW.
[2023-04-18 20:38] VITALS: BP 157/99
[2023-04-19 04:27] VITALS: BP 150/93
--- NOTE | 2023-04-19 05:01 | NUR ---
PT A&O x4, VSS, AFEBRILE. PT CALM AND COOPERATIVE WITH CARE PROVIDED. PT RECEIVED IV MAGNESIUM SULFATE. PT'S LAST MAGNESIUM LEVEL WAS 1.4 ON DAY SHIFT. PT TOLERATING FULL LIQUID DIET WITH NO PROBLEMS. NO C/O N/V. PAIN LOCATED ACROSS LOWER ABDOMINAL REGION. PAIN MANAGED WITH PRN NORCO. PT DESCRIBED PAIN "INTENSE CRAMPING" DISCOMFORT. PT ATTEMPTED TO WALK AROUND ROOM TO SEE IF THAT WOULD HELP RELIEVE PAIN. PT ENCOURAGED TO USE NON-PHARMACOLOGICAL METHODS TO MANAGE PAIN LEVELS. PT SLEPT ON AND OFF AFTER BEING MEDICATED FOR PAIN. CALL LIGHT WITHIN REACH, WCTM.
[2023-04-19 07:20] LABS: BASOPHILS ABSOLUTE AUTO 0.02 K/mm3 (0.00-0.23); BASOPHILS PERCENT AUTO 0 % (0-2); EOSINOPHILS ABSOLUTE AUTO 0.13 K/mm3 (0.00-0.68); EOSINOPHILS PERCENT AUTO 2 % (0-6); Hematocrit 24.5 % (37.0-53.0); Hemoglobin 8.7 g/dL (13.5-17.5); IMMATURE GRAN ABSOLUTE AUTO 0.19 K/mm3 (0.00-0.10); IMMATURE GRAN PERCENT AUTO 2 % (0-1); LYMPHOCYTES ABSOLUTE AUTO 1.48 K/mm3 (0.84-5.20); LYMPHOCYTES PERCENT AUTO 17 % (21-46); MONOCYTES ABSOLUTE AUTO 1.02 K/mm3 (0.16-1.47); MONOCYTES PERCENT AUTO 12 % (4-13); Mean Corpuscular HGB 31.5 pg (26.0-34.0); Mean Corpuscular HGB Conc 35.5 g/dL (31.5-36.5); Mean Corpuscular Volume 89 fL (80-100); Mean Platelet Volume 9.1 fL (9.1-12.4); NEUTROPHILS ABSOLUTE AUTO 5.65 K/mm3 (1.96-9.15); NEUTROPHILS PERCENT AUTO 67 % (41-73); Platelet Count 245 K/mm3 (150-400); RDW Coefficient Variation 16.6 % (11.7-14.2); RDW Standard Deviation 53.5 fL (35.1-46.3); Red Blood Cell Count 2.76 M/mm3 (4.30-5.90); White Blood Cell Count 8.49 K/mm3 (4.00-11.30)
[2023-04-19 07:25] LABS: Albumin, Blood 2.8 g/dL (3.4-5.0); Anion Gap 8 mmol/L (6-16); Blood Urea Nitrogen 8 mg/dL (8-24); Bun/Creatinine Ratio 8.5 (12.0-20.0); CO2, Blood 24 mmol/L (21-32); Calcium, Blood 8.6 mg/dL (8.5-10.1); Chloride, Blood 103 mmol/L (98-108); Creatinine, Blood 0.95 mg/dL (0.60-1.20); Glomerular Filtration Rate 88 (60-); Glucose, Blood 119 mg/dL (70-99); Magnesium, Blood 1.7 mg/dL (1.6-2.4); Phosphorus, Blood 3.5 mg/dL (2.5-4.9); Potassium, Blood 3.6 mmol/L (3.5-5.5); Sodium, Blood 135 mmol/L (136-145)
--- NOTE | 2023-04-19 07:38 | NUR ---
ASSUMED CARE: PT LAYING IN BED AT THIS TIME. AWAKE AND TALKING TO STAFF. NSR ON TELE. STATES ABDOMINAL PAIN WAS WELL RELIEVED WITH PAIN MEDS. DENIES NEEDS OR CONCERNS AT THIS TIME.
[2023-04-19 08:08] VITALS: BP 141/88
[2023-04-19] MEDS ORDERED: OMEP20ER PO (11:57)
[2023-04-19] MEDS ORDERED: CREON DR 12,001 EACH PO (11:58)
[2023-04-19] MEDS ORDERED: DOCUZEN 8.6-501 EACH PO (11:58)
[2023-04-19] MEDS ORDERED: B-1100 M1 PO (11:59)
[2023-04-19] MEDS ORDERED: SIME80CH PO (11:59)
[2023-04-19] MEDS ORDERED: Nicoderm Cq1 EAC1 TOP (11:59)
[2023-04-19 13:08] LABS: HBSAG SCREEN Negative (Negative); HCV AB Equivocal (Non Reactive); HEP B CORE AB, IGM Negative (Negative); HEP B CORE AB, TOT Positive (Negative); HEPATITIS C QUANTITATION HCV Not Detected IU/mL (.)
--- NOTE | 2023-04-19 13:18 | NUR ---
DISCHARGE: PT'S IV DC'D WNL. PT GIVEN INSTRUCTIONS REGARDING MEDICATIONS AND THE IMPORTANCE OF MEDICATION COMPLIANCE. PT GIVEN PRESCRIPTION FOR WALKER. [facility] PT ESCORTED OUT VIA WHEELCHAIR BY STAFF. DENIED QUESTIONS OR CONCERNS.
== END 2023-04-19 12:34 | disposition home health service (06) | DRG 811 ==
LOC: ER 10:43 → MEDS 10:44 → ENPENDDIS 04-19 12:08 → MEDS 04-19 12:34
PROVIDERS: Internal Medicine; Nurse Practitioner Acute Care; Student in an Organized Health Care Education/Training Program; ADMIT Hospitalist
PROC: 30233N1 Transfusion of Nonautologous Red Blood Cells into Peripheral Vein, Percutaneous Approach (ICD-10-PCS; principal; 2023-04-13)
DX: D52.9 Folate deficiency anemia, unspecified (principal); K85.90 Acute pancreatitis without necrosis or infection, unspecified; F10.239 Alcohol dependence with withdrawal, unspecified; K76.0 Fatty (change of) liver, not elsewhere classified; G89.29 Other chronic pain; M54.9 Dorsalgia, unspecified; Z11.52 Encounter for screening for COVID-19; J44.9 Chronic obstructive pulmonary disease, unspecified; I10 Essential (primary) hypertension; E11.9 Type 2 diabetes mellitus without complications; M10.9 Gout, unspecified; R53.81 Other malaise; M54.2 Cervicalgia; F17.210 Nicotine dependence, cigarettes, uncomplicated; I95.1 Orthostatic hypotension; R60.0 Localized edema; E80.6 Other disorders of bilirubin metabolism; K21.9 Gastro-esophageal reflux disease without esophagitis; D63.8 Anemia in other chronic diseases classified elsewhere; Z91.148 Patient's other noncompliance with medication regimen for other reason; Z88.8 Allergy status to other drugs, medicaments and biological substances; Z88.1 Allergy status to other antibiotic agents; Z88.6 Allergy status to analgesic agent; Z88.0 Allergy status to penicillin; Z79.891 Long term (current) use of opiate analgesic
CPT/HCPCS: 0241U; 36415; 36430; 71045; 74177; 76700; 80048; 80053; 80069; 80076; 82140; 82272; 82274; 82330; 82607; 82728; 82746; 83010; 83540; 83550; 83615; 83690; 83735; 83880; 85014; 85018; 85025; 85027; 85610; 85730; 86704; 86708; 86803; 86850; 86900; 86901; 86923; 87340; 93005; 93010; 94640; 94664; 94760; 96361; 96365; 96366; 96375; 96376; 97110; 97110-CQ; 97116; 97162; 97167; 97530; 97535; 99285-25; A9270; G0378; J1940; J2405; J3475; J7030; J7040; J7512; P9016; Q9967

== ENCOUNTER 2023-06-03 14:11 | Emergency (ER) | payer OTHER ==
[~2023-06-03] VITALS: Ht 193 cm; Wt 117.9 kg
[~2023-06-03 14:11] MED LIST changes: +B-1100 M1 PO; +CREON DR 12,001 EACH PO; +DOCUZEN 8.6-501 EACH PO; +Nicoderm Cq1 EAC1 TOP; +SIME80CH PO
[2023-06-03] MEDS ORDERED: MIRALAX17 GM PO (16:53)
[2023-06-03] MEDS ORDERED: DOCU100 PO (16:53)
[2023-06-03 17:40] VITALS: BP 132/92
== END 2023-06-03 17:46 | disposition home or self-care (01) ==
LOC: ER 14:11
DX: K59.00 Constipation, unspecified (principal); Z88.8 Allergy status to other drugs, medicaments and biological substances; Z88.0 Allergy status to penicillin; Z79.899 Other long term (current) drug therapy; I10 Essential (primary) hypertension; J44.9 Chronic obstructive pulmonary disease, unspecified; F17.210 Nicotine dependence, cigarettes, uncomplicated
CPT/HCPCS: 99283

== ENCOUNTER 2023-06-28 10:01 | Emergency (ER) | payer OTHER ==
[~2023-06-28] VITALS: Ht 193 cm; Wt 103.0 kg
[~2023-06-28 10:01] MED LIST changes: +DOCU100 PO; +MIRALAX17 GM PO
[2023-06-28 12:27] LABS: BASOPHILS ABSOLUTE AUTO 0.04 K/mm3 (0.00-0.23); BASOPHILS PERCENT AUTO 1 % (0-2); EOSINOPHILS ABSOLUTE AUTO 0.35 K/mm3 (0.00-0.68); EOSINOPHILS PERCENT AUTO 6 % (0-6); Hematocrit 31.5 % (37.0-53.0); Hemoglobin 11.2 g/dL (13.5-17.5); IMMATURE GRAN ABSOLUTE AUTO 0.02 K/mm3 (0.00-0.10); IMMATURE GRAN PERCENT AUTO 0 % (0-1); LYMPHOCYTES ABSOLUTE AUTO 1.32 K/mm3 (0.84-5.20); LYMPHOCYTES PERCENT AUTO 23 % (21-46); MONOCYTES ABSOLUTE AUTO 0.81 K/mm3 (0.16-1.47); MONOCYTES PERCENT AUTO 14 % (4-13); Mean Corpuscular HGB 29.8 pg (26.0-34.0); Mean Corpuscular HGB Conc 35.6 g/dL (31.5-36.5); Mean Corpuscular Volume 84 fL (80-100); Mean Platelet Volume 9.2 fL (9.1-12.4); NEUTROPHILS PERCENT AUTO 57 % (41-73); Platelet Count 219 K/mm3 (150-400); RDW Coefficient Variation 15.5 % (11.7-14.2); RDW Standard Deviation 47.1 fL (35.1-46.3); Red Blood Cell Count 3.76 M/mm3 (4.30-5.90); White Blood Cell Count 5.84 K/mm3 (4.00-11.30)
[2023-06-28 13:07] LABS: Albumin, Blood 3.1 g/dL (3.4-5.0); Albumin/Globulin Ratio 0.8 (0.8-1.8); Bilirubin, Total 1.4 mg/dL (0.1-1.0); Bun/Creatinine Ratio 23.3 (12.0-20.0); Calcium, Blood 8.5 mg/dL (8.5-10.1); Creatinine, Blood 0.99 mg/dL (0.60-1.20); Globulin, Blood 4.1 g/dL (2.2-4.0); Potassium, Blood 3.1 mmol/L (3.5-5.5); Total Protein, Blood 7.2 g/dL (6.4-8.2)
[2023-06-28] MEDS ORDERED: POTA10T PO (13:49)
[2023-06-28 14:15] VITALS: BP 135/94
== END 2023-06-28 14:43 | disposition home or self-care (01) ==
LOC: ER 10:01
PROVIDERS: Physician Assistant
DX: R60.0 Localized edema (principal); E87.6 Hypokalemia; K76.0 Fatty (change of) liver, not elsewhere classified; F10.20 Alcohol dependence, uncomplicated; I10 Essential (primary) hypertension; M41.9 Scoliosis, unspecified; G89.29 Other chronic pain; M54.2 Cervicalgia; J44.9 Chronic obstructive pulmonary disease, unspecified; D63.8 Anemia in other chronic diseases classified elsewhere; E11.9 Type 2 diabetes mellitus without complications; F17.210 Nicotine dependence, cigarettes, uncomplicated; Z88.8 Allergy status to other drugs, medicaments and biological substances; Z88.6 Allergy status to analgesic agent; Z88.0 Allergy status to penicillin; Z79.899 Other long term (current) drug therapy
CPT/HCPCS: 80053; 83880; 85025; A9270; J1940